=== PATIENT | male | born 1990 | race American Indian/Alaskan Native ===

== ENCOUNTER 2016-11-09 21:19 | Emergency (ER) | payer BC ==
[2016-11-09 22:04] VITALS: BP 121/66
--- NOTE | 2016-11-09 22:53 | XRay Report ---
FINAL REPORT EXAM: XR ANKLE 3 LT HISTORY: Left ankle swollen COMPARISON: None available. FINDINGS: Three views of the left ankle obtained. Soft tissue swelling. Ankle mortise is preserved. 2 millimeter well corticated bony fragment at the inferior margin medial malleolus compatible sequelae of remote fracture. No acute fracture on today's exam. IMPRESSION: No acute bony abnormality. Soft tissue swelling.
--- NOTE | 2016-11-09 22:54 | XRay Report ---
FINAL REPORT EXAM: XR FOOT 3 LT HISTORY: Left foot swollen COMPARISON: Left ankle from the same date. FINDINGS: Three views of the left foot obtained. No acute fracture dislocation. 2 millimeter well corticated bony fragment at the inferior margin medial malleolus compatible with remote fracture. Joint spaces are preserved. IMPRESSION: No acute bony abnormality.
[2016-11-10] MEDS ORDERED: BOOSTRIX IM ONE (00:52)
[2016-11-10] MEDS ORDERED: MOTRIN PO ONE (00:52)
--- NOTE | 2016-11-10 00:57 | Emergency Department Report ---
ED Lower Extremity HPI - General Chief Complaint: Extremity Injury, Lower Stated Complaint: LT ANKLE INJURY Time Seen by Provider: 11/10/16 00:40 Source: patient Mode of arrival: Ambulatory Limitations: No Limitations - History of Present Illness Initial Comments: 26-year-old male past medical history none presents with complaint of left ankle pain and swelling. Patient states that while he was playing football he accidentally stepped on a log and had inversion mechanism to left ankle this evening. Patient denies any other injuries. Tiny abrasions to left side foot. Unaware of tetanus status. Patient is awake alert and oriented 3, states that due to pain and left ankle it is difficult for him to walk. Patient has antalgic gait. Denies any other injuries and is fully lucid. Onset/Timin -: hour(s) Injury: Ankle: Left Type of Injury: inversion Place: street/outdoors Severity: moderate Severity scale (0 -10): 6 Worsens With: weight bearing Context: fall, running Associated Symptoms: swelling, able to partially bear weight - Related Data Previous Rx's Medication Instructions Recorded Last Taken Type Naproxen [Naprosyn TAB] 500 mg PO BID PRN #30 tablet 11/10/16 Unknown Rx Allergies Allergy/AdvReac Type Severity Reaction Status Date / Time No Known Allergies Allergy Unverified 08/25/15 06:25 ED Review of Systems ROS: Stated complaint: LT ANKLE INJURY Other details as noted in HPI Constitutional: denies: chills, fever Eyes: denies: eye pain, eye discharge, vision change ENT: denies: ear pain, throat pain Respiratory: denies: cough, shortness of breath, wheezing Cardiovascular: denies: chest pain, palpitations Endocrine: no symptoms reported Gastrointestinal: denies: abdominal pain, nausea, diarrhea Genitourinary: denies: urgency, dysuria Musculoskeletal: denies: back pain, joint swelling, arthralgia Skin: denies: rash, lesions Neurological: denies: headache, weakness, paresthesias Psychiatric: denies: anxiety, depression Hematological/Lymphatic: denies: easy bleeding, easy bruising ED Past Medical Hx - Past Medical History Previous Medical History?: No - Social History Smoking Status: Unknown if ever smoked - Medications Home Medications: Home Medications Medication Instructions Recorded Confirmed Last Taken Type Naproxen [Naprosyn TAB] 500 mg PO BID PRN #30 tablet 11/10/16 Unknown Rx ED Physical Exam - General Limitations: No Limitations General appearance: alert, in no apparent distress - Head Head exam: Present: atraumatic, normocephalic - Eye Eye exam: Present: normal appearance, PERRL, EOMI - ENT ENT exam: Present: mucous membranes moist - Neck Neck exam: Present: normal inspection - Respiratory Respiratory exam: Present: normal lung sounds bilaterally. Absent: respiratory distress - Cardiovascular Cardiovascular Exam: Present: regular rate, normal rhythm. Absent: systolic murmur, diastolic murmur, rubs, gallop - GI/Abdominal GI/Abdominal exam: Present: soft, normal bowel sounds - Rectal Rectal exam: Present: deferred - Extremities Exam Extremities exam: Present: normal inspection - Expanded Lower Extremity Exam Left Hip exam: Present: normal inspection, full ROM Upper Leg exam: Present: normal inspection, full ROM Knee exam: Present: normal inspection, full ROM Lower Leg exam: Present: normal inspection, full ROM Ankle exam: Present: normal inspection, full ROM (ankle dorsiflexion and plantar flexion is intact), swelling, abrasion (small abrasions on left side of ankle) Foot/Toe exam: Present: abrasion (2 small 1 cm abrasion superficial left side foot) Neuro vascular tendon exam: Present: no vascular compromise (distal dorsalis pedis and posterior tibial pulses are intact, sensation intact on palpation patient is able to dorsiflex and plantarflex against resistance) Gait: Positive: antalgic 1 - Mild swelling and mild tenderness here - Back Exam Back exam: Present: normal inspection - Neurological Exam Neurological exam: Present: alert, oriented X3, CN II-XII intact - Psychiatric Psychiatric exam: Present: normal affect, normal mood - Skin Skin exam: Present: warm, dry, intact, normal color. Absent: rash ED Course Vital Signs 11/09/16 21:59 Temperature 99.6 F Pulse Rate 103 H Respiratory 18 Rate Blood Pressure 121/66 O2 Sat by Pulse 97 Oximetry ED Lower Extremity MDM - Medical Decision Making A/P: Left ankle sprain, foot abrasions 1-podiatry shoe, air stirrup splint, Bryan wrap, crutches, nonweightbearing for now, weightbearing as tolerated throughout the week 2-naproxen when necessary for pain, RICE therapy 3-follow-up with orthopedics 4-x-rays of foot and ankle show no fractures 5- tetanus updated today, triple antibiotic ointment to abrasions Critical care attestation.: If time is entered above; I have spent that time in minutes in the direct care of this critically ill patient, excluding procedure time. ED Disposition Clinical Impression: Mild sprain of left ankle Qualifiers: Encounter type: initial encounter Qualified Code(s): S93.402A - Sprain of unspecified ligament of left ankle, initial encounter Foot abrasion Qualifiers: Encounter type: initial encounter Laterality: left Qualified Code(s): S90.812A - Abrasion, left foot, initial encounter Disposition: TO HOME OR SELFCARE Is pt being admited?: No Does the pt Need Aspirin: No Condition: Stable Instructions: Abrasion (ED), Ankle Sprain (ED), Ankle Stirrup Splint (ED), Crutch Instructions (ED) Prescriptions: Naproxen [Naprosyn TAB] 500 mg PO BID PRN #30 tablet PRN Reason: Pain Referrals: STEFFANIE GARCIA MD [Staff Physician] - 3-5 Days Forms: Work/School Release Form(ED) Time of Disposition: 00:58
== END 2016-11-10 01:08 | disposition home or self-care (01) ==
LOC: ED 21:19
DX: S93.402A Sprain of unspecified ligament of left ankle, initial encounter (principal); S90.812A Abrasion, left foot, initial encounter; X50.1XXA Overexertion from prolonged static or awkward postures, initial encounter; Y93.61 Activity, american tackle football; Y99.8 Other external cause status; Y92.321 Football field as the place of occurrence of the external cause
CPT/HCPCS: 90471; 90715